=== PATIENT | female | born 1955 | race Caucasian/White ===

== ENCOUNTER 2016-10-21 06:14 | Day surgery (SDC) | payer OTHER ==
[~2016-10-21] VITALS: Ht 165.1 cm; Wt 101.0 kg
[~2016-10-21 06:14] MED LIST: ATORVASTATIN CA20 MG PO; HYDROCHLOROTHIA25 MG PO; Hydrodiuril,Oretic,E PO; LEVOTHYROXINE75 MCG PO; LISINOPRIL5 MG PO; Levothroid,Synthroid PO; Lipitor PO; OMEPRAZOLE20 MG PO; PERCOCET 5/31 TABLET PO; PriLOSEC PO; VITAMIN B12 PO; VITAMIN D35000 UNIT PO; Vicodin,Norco 5/325 PO; Vitamin B-12 PO; ZOFRAN ODT4 MG PO; Zestril,Prinivil PO
[2016-10-21 07:17] VITALS: BP 130/77
[2016-10-21 16:00] VITALS: BP 155/82
[2016-10-21 17:00] VITALS: BP 150/76
== END 2016-10-21 17:10 | disposition home or self-care (01) ==
LOC: NUC 06:14 → SDC 06:14
DX: C50.512 Malignant neoplasm of lower-outer quadrant of left female breast (principal); Z17.0 Estrogen receptor positive status [ER+]; R00.1 Bradycardia, unspecified; I10 Essential (primary) hypertension; E89.0 Postprocedural hypothyroidism; K21.9 Gastro-esophageal reflux disease without esophagitis; E66.9 Obesity, unspecified; Z68.38 Body mass index [BMI] 38.0-38.9, adult; Z80.3 Family history of malignant neoplasm of breast; Z82.49 Family history of ischemic heart disease and other diseases of the circulatory system; Z80.1 Family history of malignant neoplasm of trachea, bronchus and lung; Z80.42 Family history of malignant neoplasm of prostate; Z83.3 Family history of diabetes mellitus; Z88.5 Allergy status to narcotic agent; Z88.8 Allergy status to other drugs, medicaments and biological substances
CPT/HCPCS: 78195; 78999; 88305; 88307; 88331; A9541; J0461; J0690; J1100; J1170; J1885; J2250; J2405; J3010; S0020

== ENCOUNTER 2016-11-18 11:39 | Day surgery (SDC) | payer OTHER ==
[~2016-11-18] VITALS: Ht 165.1 cm; Wt 102.0 kg
[2016-11-18 11:56] VITALS: BP 133/80
[2016-11-18 16:07] VITALS: BP 142/80
[2016-11-18 16:42] VITALS: BP 148/82
== END 2016-11-18 17:00 | disposition home or self-care (01) ==
LOC: SDC 11:39
PROC: 0HBU0ZZ Excision of Left Breast, Open Approach (ICD-10-PCS; principal; 2016-11-18)
DX: C50.312 Malignant neoplasm of lower-inner quadrant of left female breast (principal); Z17.0 Estrogen receptor positive status [ER+]; I10 Essential (primary) hypertension; M50.10 Cervical disc disorder with radiculopathy, unspecified cervical region; K21.9 Gastro-esophageal reflux disease without esophagitis; K44.9 Diaphragmatic hernia without obstruction or gangrene; E04.2 Nontoxic multinodular goiter; E66.9 Obesity, unspecified; Z68.37 Body mass index [BMI] 37.0-37.9, adult; Z88.5 Allergy status to narcotic agent; Z88.8 Allergy status to other drugs, medicaments and biological substances
CPT/HCPCS: 88307; J0330; J0690; J1100; J2250; J2405; J3010; S0020